=== PATIENT | female | born 1990 | race Caucasian/White ===

== ENCOUNTER 2016-07-24 08:46 | Day surgery (SDC) | payer OTHER ==
--- NOTE | 2016-07-24 09:21 | C.PDOC ---
Time Seen by Provider: 07/24/16 08:58 Chief Complaint (Nursing): Female Genitourinary Past Medical History Vital Signs: Last Vital Signs Temp 98.2 F 07/24/16 09:00 Pulse 72 07/24/16 09:00 Resp 16 07/24/16 09:00 BP 94/67 L 07/24/16 09:00 Pulse Ox 100 07/24/16 09:00 Surgical History: Appendectomy - Social History Hx Alcohol Use: No Hx Substance Use: No - Immunization History Hx Influenza Vaccination: No ED Course And Treatment O2 Sat by Pulse Oximetry: 100
--- NOTE | 2016-07-24 09:28 | C.PDOC ---
History Of Present Illness 25 y/o female lmp 06/03/16 presents with vaginal bleeding since last night, about 3 pads used, with intermittent cramping, none at present. denies urinary symptoms. Time Seen by Provider: 07/24/16 08:58 Chief Complaint (Nursing): Female Genitourinary History Per: Patient, Family History/Exam Limitations: no limitations Onset/Duration Of Symptoms: Days (1) Last Menstral Period: 06/03/16 : 1 Para: 0 Miscarriage: 0 Past Medical History Reviewed: Historical Data, Nursing Documentation, Vital Signs Vital Signs: Last Vital Signs Temp 98.2 F 07/24/16 09:00 Pulse 72 07/24/16 09:00 Resp 16 07/24/16 09:00 BP 94/67 L 07/24/16 09:00 Pulse Ox 100 07/24/16 10:21 - Medical History PMH: No Chronic Diseases Surgical History: Appendectomy Family History: States: Unknown Family Hx - Social History Hx Tobacco Use: No Hx Alcohol Use: No Hx Substance Use: No - Immunization History Hx Influenza Vaccination: No Review Of Systems Constitutional: Negative for: Fever, Chills Cardiovascular: Negative for: Chest Pain Respiratory: Negative for: Cough, Shortness of Breath Gastrointestinal: Positive for: Abdominal Pain. Negative for: Nausea, Vomiting Genitourinary: Positive for: Vaginal Discharge. Negative for: Dysuria Neurological: Negative for: Weakness, Numbness Physical Exam - Physical Exam Appears: Non-toxic, No Acute Distress Skin: Normal Color, Warm, Dry Head: Atraumatic Neck: Normal ROM Chest: Symmetrical, No Deformity, No Tenderness Cardiovascular: Rhythm Regular, No Murmur Respiratory: Normal Breath Sounds, No Rales, No Rhonchi, No Wheezing Gastrointestinal/Abdominal: Bowel Sounds, Soft, No Tenderness Back: No CVA Tenderness Neurological/Psych: Oriented x3, Normal Speech, Normal Cognition, Normal Motor, Normal Sensation ED Course And Treatment - Laboratory Results Result Diagrams: 07/24/16 09:29 07/24/16 09:28 O2 Sat by Pulse Oximetry: 100 Medical Decision Making Medical Decision Makin25 y/o female with ab pain, preg, vaginal bleeding- - labs, hcg, ua type and screen pelvic sono Disposition Discussed With : Livan Marinelli Doctor Will See Patient In The: Hospital - Disposition Disposition: HOSPITALIZED Disposition Time: 10:21 Condition: STABLE - Clinical Impression Clinical Impression: Missed with demise before 20 completed weeks of gestation
[2016-07-24] MEDS ORDERED: Sodium Chloride 0.9% 1,000 ML IV ONE (09:29)
[2016-07-24 09:42] LABS: EOS # 0.1 K/uL (0.0-0.7); MEAN CELL VOLUME 86.5 fL (81.0-99.0)
[2016-07-24 09:45] LABS: CHLORIDE 98 mmol/L (98-107); SODIUM 137 mmol/L (132-148)
[2016-07-24 09:46] LABS: POTASSIUM 3.8 mmol/L (3.6-5.2)
[2016-07-24 09:46] LABS: BASO % 0.5 % (0.0-2.0); EOS % 1.3 % (0.0-4.0); HEMATOCRIT 34.1 % (34.0-47.0); LYMPH # 2.4 K/uL (1.0-4.3); LYMPH % 33.7 % (20.0-40.0); MEAN CORPUSCULAR HGB CONC 33.6 g/dL (33.0-37.0); MEAN PLATELET VOLUME 8.7 fL (7.2-11.7); MONO # 0.5 K/uL (0.0-0.8); MONO % 6.6 % (0.0-10.0); RED CELL DISTRIBUTION WIDTH 12.6 % (11.5-14.5); WHITE BLOOD COUNT 7.1 K/uL (4.8-10.8)
[2016-07-24 09:48] LABS: ALB/GLOB RATIO 1.3 (1.0-2.1); ALKALINE PHOSPHATASE 42 U/L (38-126); AST/SGOT 17 U/L (14-36); BILIRUBIN,TOTAL 0.6 mg/dL (0.2-1.3); BLOOD UREA NITROGEN 6 mg/dL (7-17); CARBON DIOXIDE 24 mmol/L (22-30); GFR AFRICAN-AMERICAN > 60; TOTAL PROTEIN 7.3 g/dL (6.3-8.3)
[2016-07-24 09:49] LABS: ALT/SGPT 12 U/L (9-52); CALCIUM 8.7 mg/dl (8.6-10.4); GLUCOSE,RANDOM 84 mg/dL (65-105)
--- NOTE | 2016-07-24 10:44 | US ---
PROCEDURE: OB Pelvic Ultrasound HISTORY: preg with pain COMPARISON: None available. FINDINGS: UTERUS: Single Live intrauterine gestation. CRL equivalent to 6 weeks 1 day gestatioin Gestational sac diameter equivalent to 6 weeks 0 days gestation. . Gestational sac slightly irregular in shape. age (Ultrasound estimated): 6 weeks 1 day Date of delivery (Ultrasound estimated) : 03/18/2017 Heart rate: 78.8 beats per minute This is abnormally low. Breann-gestational hemorrhage: Large subchorionic hemorrhage, measuring 4.5 x 2.7 x 3.6 cm. Uterus measures 8.6 x 4.8 x 6.2 cm. No mass. CERVIX: Cervix closed and measures 2.6 cm in length. This is slightly shortened. Follow-up advised. RIGHT OVARY: Measures 4.1 x 1.6 x 3.2 cm. No mass. Normal flow. LEFT OVARY: Measures 5.0 x 1.9 x 3.7 cm. No solid mass. Normal flow. Simple cyst, 3.3 x 1.5 x 2.0 cm. FREE FLUID: Small amount of free fluid in cul-de-sac OTHER FINDINGS: None. IMPRESSION: Single live intrauterine gestation of approximately 6 weeks 1 day gestational age. heart rate 78.8 beats per minute. This is below 100 beats per minute is abnormal. Large subchorionic hemorrhage, 4.5 cm in greatest dimension. 3.3 cm left ovarian cyst incidentally noted. Small amount of fluid in cul-de-sac. These findings were discussed by telephone with GUMARO Rachel, at 10:40 a.m. on 07/24/2016.
--- NOTE | 2016-07-24 10:49 | CP.PCM.HP ---
<Sterling Doyle - Last Filed: 07/24/16 10:59> History of Present Illness - History of Present Illness History of Present Illness: Sterling Doyle D.O. PGY-1, Internal Medicine Resident, OBGYN Consultation Note 25 year old female with no PMH who presents to [facility] ER after having vaginal bleeding since last night. Patient reports that she began to have some lower abdominal pain, some back pain, and started to have vaginal bleeding such as when she has a period, then noticed that she was having "big chunks" of blood. Patient states that the pain is 6/10 at its worst, intermittent, localized to the lower abdomen and some back but otherwise non- radiating, not worsened or improved by anything that she has noticed. Patient denies any possible inciting event. OBGYN: Dr. Marinelli PMH: denies PSH: appendectomy SH: denies smoking, drugs, or alcohol use FH: noncontributory Meds: none Allergies: none Present on Admission - Present on Admission Any Indicators Present on Admission: No Review of Systems - Constitutional Constitutional: absent: Anorexia, Chills - EENT Eyes: absent: Blind Spots, Blurred Vision Ears: absent: Decreased Hearing, Dizziness Nose/Mouth/Throat: absent: Epistaxis, Nasal Congestion - Cardiovascular Cardiovascular: absent: Leg Edema, Palpitations, Pedal Edema - Respiratory Respiratory: absent: Cough, Dyspnea, Hemoptysis - Gastrointestinal Gastrointestinal: absent: Abdominal Pain, Diarrhea, Dyspepsia, Nausea, Vomiting - Genitourinary Genitourinary: absent: Dysuria, Flank Pain, Hematuria - Musculoskeletal Musculoskeletal: Back Pain. absent: Numbness - Integumentary Integumentary: absent: Pruritus, Rash, Skin Pain - Neurological Neurological: absent: Syncope, Tremor, Weakness Past Patient History - Past Social History Smoking Status: Never Smoked - PSYCHIATRIC Hx Substance Use: No - SURGICAL HISTORY Hx Appendectomy: Yes - ANESTHESIA Hx Anesthesia: Yes Hx Anesthesia Reactions: No Meds Allergies/Adverse Reactions: Allergies Allergy/AdvReac Type Severity Reaction Status Date / Time No Known Allergies Allergy Verified 07/24/16 09:02 Physical Exam - Constitutional Additional comments: well developed, well nourished, pleasant young female - Head Exam Head Exam: ATRAUMATIC, NORMOCEPHALIC - Eye Exam Eye Exam: EOMI, PERRL. absent: Conjunctival injection, Scleral icterus - ENT Exam ENT Exam: Mucous Membranes Moist, Normal Oropharynx - Neck Exam Neck exam: Positive for: Full Rom. Negative for: Lymphadenopathy, Tenderness - Respiratory Exam Respiratory Exam: Clear to Auscultation Bilateral. absent: Rales, Rhonchi, Wheezes - Cardiovascular Exam Cardiovascular Exam: RRR, +S1, +S2. absent: Gallop, Rubs, Systolic Murmur - GI/Abdominal Exam GI & Abdominal Exam: Normal Bowel Sounds, Soft, Tenderness (mild suprapubic). absent: Distended - Exam Additional comments: deferred - Extremities Exam Extremities exam: Positive for: normal capillary refill, normal inspection, pedal pulses present. Negative for: calf tenderness, pedal edema - Neurological Exam Neurological exam: Alert, CN II-XII Intact, Oriented x3 - Skin Skin Exam: Dry, Intact, Warm Results - Vital Signs Recent Vital Signs: Last Vital Signs Temp 98.2 F 07/24/16 09:00 Pulse 72 07/24/16 09:00 Resp 16 07/24/16 09:00 BP 94/67 L 07/24/16 09:00 Pulse Ox 100 07/24/16 10:28 - Labs Result Diagrams: 07/24/16 09:29 07/24/16 09:28 Labs: Laboratory Results - last 24 hr 07/24/16 07/24/16 09:28 09:29 WBC 7.1 RBC 3.94 Hgb 11.4 Hct 34.1 MCV 86.5 MCH 29.0 MCHC 33.6 RDW 12.6 Plt Count 228 MPV 8.7 Neut % (Auto) 57.9 Lymph % (Auto) 33.7 [place] % (Auto) 6.6 Eos % (Auto) 1.3 Baso % (Auto) 0.5 Neut # 4.1 Lymph # 2.4 [place] # 0.5 Eos # 0.1 Baso # 0.0 Sodium 137 Potassium 3.8 Chloride 98 Carbon Dioxide 24 Anion Gap 18 BUN 6 L Creatinine 0.4 L Est GFR ( Amer) > 60 Est GFR (Non-Af Amer) > 60 Random Glucose 84 Calcium 8.7 Total Bilirubin 0.6 AST 17 ALT 12 Alkaline Phosphatase 42 Total Protein 7.3 Albumin 4.1 Globulin 3.2 Albumin/Globulin Ratio 1.3 Blood Type O POSITIVE Antibody Screen Negative Assessment & Plan - Assessment and Plan (Free Text) Assessment: 25 year old female with no PMH who presents to [facility] ER after having vaginal bleeding since last night. Plan: Patient likely has missed . Labs reviewed by myself. Imaging and official read reviewed by myself, OB ultrasound consistent with small intrauterine gestation 6 weeks 1 day, heart rate is slow, and there is a large subchorionic hemorrhage. Plan for D&C in the OR. Thank you for allowing us to be involved in the care of this patient. Will discuss case with Dr. Marinelli. - Date & Time Date: 07/24/16 Time: 10:38 <Livna Marinelli - Last Filed: 07/24/16 11:22> History of Present Illness - History of Present Illness History of Present Illness: 25 lmp 2/5 here with c/o vaginal bleeding started last night with clots and pain. pt used 4 pads so far and was soaked. obhx primi\\pmh deniesmed pnv all nkda psh denies soch denies sse mod blood pelvic exa ex gn old blood, cervix open , ut anteverted , 6 we, no pal mass sono irrgular gs , 70 fh Present on Admission - Present on Admission Any Indicators Present on Admission: No History of DVT/PE: No History of Uncontrolled Diabetes: No Urinary Catheter: No Decubitus Ulcer Present: No Review of Systems - Reproductive: Female Reproductive:Female: Abnormal Vaginal Bleeding (preg bleeeding) Physical Exam - Exam External exam: NORMAL EXTERNAL EXAM (with vaginal bleeding) Speculum exam: Vaginal Bleeding (mod , cervix dilated) Bimanual exam: NORMAL BIMANUAL EXAM (cervix dilated) Results - Vital Signs Recent Vital Signs: Last Vital Signs Temp 97.7 F 07/24/16 10:40 Pulse 64 07/24/16 10:40 Resp 18 07/24/16 10:40 BP 108/67 07/24/16 10:40 Pulse Ox 100 07/24/16 10:40 - Labs Result Diagrams: 07/24/16 09:29 07/24/16 09:28 Labs: Laboratory Results - last 24 hr 07/24/16 07/24/16 09:28 09:29 WBC 7.1 RBC 3.94 Hgb 11.4 Hct 34.1 MCV 86.5 MCH 29.0 MCHC 33.6 RDW 12.6 Plt Count 228 MPV 8.7 Neut % (Auto) 57.9 Lymph % (Auto) 33.7 [place] % (Auto) 6.6 Eos % (Auto) 1.3 Baso % (Auto) 0.5 Neut # 4.1 Lymph # 2.4 [place] # 0.5 Eos # 0.1 Baso # 0.0 Sodium 137 Potassium 3.8 Chloride 98 Carbon Dioxide 24 Anion Gap 18 BUN 6 L Creatinine 0.4 L Est GFR ( Amer) > 60 Est GFR (Non-Af Amer) > 60 Random Glucose 84 Calcium 8.7 Total Bilirubin 0.6 AST 17 ALT 12 Alkaline Phosphatase 42 Total Protein 7.3 Albumin 4.1 Globulin 3.2 Albumin/Globulin Ratio 1.3 Beta HCG, Quant 17053.00 Blood Type O POSITIVE Antibody Screen Negative Assessment & Plan - Assessment and Plan (Free Text) Assessment: 25 yr at 6weeks incomplete Plan: Admit t printing grey cloth tender npo/ivf labs antibiotoc suction d & c. r/a/b discussed. expectant/surgical mnGEMENT DISCUSSED. PT UNDERSTAND AND AGREES WITH SURGICAL. or AWARE - Date & Time Date: 07/24/16 Time: 11:40
[2016-07-24] MEDS ORDERED: ceFAZolin IV 1 gm in Dextrose 50 ML IVPB ONE (11:20)
[2016-07-24] MEDS ORDERED: Oxytocin 20 units in LR 0 ML IV ONE (11:21)
--- NOTE | 2016-07-24 11:24 | PCM.SURG1 ---
Surgeon's Initial Post Op Note - Surgeon's Notes Surgeon: DR GAMING Dispatch Manager: NONE Anesthesia Administered By: DR DILLON Pre-Operative Diagnosis: 25 YR AT 6WEEKS INCOMPLETE Operative Findings: see the op report Post-Operative Diagnosis: same Operation Performed: suction d &c Specimen/Specimens Removed: poc. chromose analysis Estimated Blood Loss: EBL {In ML}: 20 Blood Products Given: N/A Drains Used: No Drains Post-Op Condition: Good Date of Surgery/Procedure: 07/24/16 Time of Surgery/Procedure: 11:40
[2016-07-24] MEDS ORDERED: Midazolam 2 MG/2 ML VIAL ONE (11:34)
[2016-07-24] MEDS ORDERED: Propofol 10 mg/ml Inj (20 ML) ONE (11:34)
[2016-07-24] MEDS ORDERED: HYDROmorphone 0.5 mg/0.5 ml ISec IVP PRN (11:53)
--- NOTE | 2016-07-25 09:47 | OP ---
PROCEDURE DATE: 07/24/2016 PREOPERATIVE DIAGNOSES: A 25-year-old 1, para 0 at 6+ weeks with incomplete . POSTOPERATIVE DIAGNOSIS: A 25-year-old 1, para 0 at 6+ weeks with incomplete . SURGEON: Livan Marinelli MD READY TO WEAR DEPARTMENT MANAGER SURGEON: None. ANESTHESIA: General anesthesia through IV sedation. ANESTHESIOLOGIST: Dr. Hines. COMPLICATIONS: None. PROCEDURE PERFORMED: Suction dilation and curettage. PROCEDURE: After informed consent was obtained, the patient was brought to the operating room, place d on the table where general anesthesia was given. When anesthesia was found to be adequate, the pat ient was prepped and draped in normal sterile fashion. Examination performed and found cervix to be open 1-2 cm, uterus was 6 weeks to 7 weeks, no vulvar or adnexal masses, after which Carter catheteriz ation was done, 50 mL of urine came out. Then the anterior lip of the cervix was grasped with the te naculum. Gentle dilatation of the cervix was done. Then the 6-Dutch catheter suction curette was i ntroduced and suction was done. Some of the part of the products were sent for chromosome analysis. Then the 7-Dutch catheter was used and then sharp curettage was done gently until ____ then grating sensation was felt. After that, one more time the suction was done. It was found to be clean. The n the anterior tenaculum was taken out from anterior lip of the cervix. The patient tolerated the pr ocedure well. Laps, sponge and instruments correct x 2. Livan Marinelli MD cc: [id number] TT: 07/25/2016 09:47:11 nj
[2016-07-25 16:01] VITALS: BP 110/70; PULSE 80; RESP 18; TEMP 97.6; O2SAT 100
== END 2016-07-24 13:30 | disposition hospice, home (50) ==
LOC: C.SDS 08:46 → C.ER 08:46 → C.SDS 10:27
PROVIDERS: ATTEND Obstetrics & Gynecology
DX: O03.4 Incomplete spontaneous abortion without complication (principal)
CPT/HCPCS: 59812; 76805; 76817; 80053; 84702; 85025; 86850; 86900; 88233; 88262; 88305; 99285; J0690; J2250; J2704; J3010; J7040

== ENCOUNTER 2017-07-21 10:41 | Emergency (ER) | payer OTHER ==
[2017-07-21 10:48] VITALS: TEMP 98.3; O2SAT 100
[2017-07-21] MEDS ORDERED: Sodium Chloride 0.9% 1,000 ML IV ONE (11:04)
--- NOTE | 2017-07-21 11:20 | C.PDOC ---
History Of Present Illness 26 year old female presents to the ED with a complaint of vaginal bleeding since yesterday. Patient reports she has had light bleeding, using approximately two pads daily. Patient is 5 weeks , . She denies any dysuria, pelvic pain, vomiting/diarrhea, fever, vaginal discharge. Patient' s transit proof machine operator is Dr. Marinelli Time Seen by Provider: 07/21/17 11:01 Chief Complaint (Nursing): Female Genitourinary History Per: Patient History/Exam Limitations: no limitations Onset/Duration Of Symptoms: Days (x 1) Current Symptoms Are (Timing): Still Present Severity: Mild Associated Symptoms: denies: Fever, Chills, Nausea, Vomiting, Urinary Symptoms Exacerbating Factors: None Alleviating Factors: None Recent travel outside of the [place]: No Abnormal Vaginal Bleeding: Yes : 2 Para: 1 Past Medical History Reviewed: Historical Data, Nursing Documentation, Vital Signs Vital Signs: Last Vital Signs Temp 98.3 F 07/21/17 10:46 Pulse 88 07/21/17 15:18 Resp 18 07/21/17 15:18 BP 109/72 07/21/17 15:18 Pulse Ox 100 07/21/17 15:18 - Medical History PMH: No Chronic Diseases Surgical History: Appendectomy Family History: States: No Known Family Hx - Social History Hx Tobacco Use: No Hx Alcohol Use: No Hx Substance Use: No - Immunization History Hx Influenza Vaccination: No Review Of Systems Except As Marked, All Systems Reviewed And Found Negative. Constitutional: Negative for: Fever Gastrointestinal: Negative for: Nausea, Vomiting, Abdominal Pain, Diarrhea Genitourinary: Positive for: Vaginal Bleeding. Negative for: Dysuria, Vaginal Discharge Physical Exam - Physical Exam Appears: Well, Non-toxic, No Acute Distress Skin: Normal Color, Warm, Dry Eye(s): bilateral: Normal Inspection Oral Mucosa: Moist Cardiovascular: Rhythm Regular Respiratory: Normal Breath Sounds, No Rales, No Rhonchi, No Wheezing Gastrointestinal/Abdominal: Normal Exam, Bowel Sounds, Soft, No Tenderness, No Distention Back: No CVA Tenderness Neurological/Psych: Oriented x3 ED Course And Treatment - Laboratory Results Result Diagrams: 07/21/17 11:20 07/21/17 11:20 O2 Sat by Pulse Oximetry: 100 (ra) Pulse Ox Interpretation: Normal - CT Scan/US TRANSVAGINAL US Other Rad Studies (CT/US): Read By Radiologist, Radiology Report Reviewed CT/US Interpretation: Accession No. : [id number]. Patient Name / ID : SHARIFA YUNG / [id number]. Exam Date : 07/21/2017 13:39:31 ( Approved ). Study Comment : Sex / Age : F / 26Y. Creator : Deisy Jack MD. Dictator : Deisy Jack MD. Web Application Dev Specialist : Orthotic Assistant : Deisy Jack MD. Approver2 : Report Date : 07/21/2017 14:38:49. My Comment : . HISTORY: PELVIC PAIN BLEEDING. COMPARISON: None available. TECHNIQUE: Transvaginal and transabdominal pelvic ultrasound was performed. FINDINGS: UTERUS: Measures 7.6 x 4.8 x 5.5 cm. Retroverted, normal in size and appearance. No fibroid or other mass lesion seen. ENDOMETRIUM: Measures 10 mm in diameter. Normal in appearance. No evidence of intrauterine gestation. There is a small calcification within the endometrial canal. CERVIX: No cervical abnormality identified. RIGHT OVARY: Measures 3.0 x 1.8 x 2.4 cm. Normal flow. There is a 2.0 x 1.8 x 2.3 cm heterogeneous predominantly hyperechoic mass like area in the right adnexa with mild peripheral vascularity. LEFT OVARY : Measures 3.1 x 1.6 x 2.1 cm. No solid mass. Normal flow. FREE FLUID: There is small amount of free fluid in the pelvis. OTHER FINDINGS: None. IMPRESSION : No evidence of intrauterine gestation. 2.0 x 1.8 x 2.3 cm heterogeneous structure with mild peripheral increased vascularity in the right adnexa is nonspecific however given history of positive beta HCG levels, ectopic cannot be entirely excluded. Clinical and imaging follow-up, and correlation with serial beta HCG levels is recommended. Progress Note: Blood work, UA, transvaginal US ordered and reviewed. Patient given IV NS bolus. Reevaluation Time: 14:55 Reassessment Condition: Improved (Patient currently resting comfortably, in no pain/distress, and without active bleeding. Explained blood work and ultrasound results to patient, and she understands she should follow up with ob/ back roller as scheduled July 29. Patient instructed to return to ED if she has any concerning symptoms.) - Physician Consult Information Physician Contacted: Livan Marinelli Outcome Of Conversation: Discussed patient/ultrasound results with her transit proof machine operator, patient can be discharged home at this time, recommends follow up with her in the office as scheduled July 29. Disposition Counseled Patient/Family Regarding: Studies Performed, Diagnosis, Need For Followup - Disposition Referrals: Livan Marinelli MD [Staff Provider] - Disposition: HOME/ ROUTINE Disposition Time: 14:55 Condition: STABLE Additional Instructions: FOLLOW UP WITH DR MARINELLI SCHEDULED IN THE OFFICE RETURN TO ER IF SYMPTOMS WORSEN Instructions: Bleeding With (DC) Forms: Compendium (Nepali) Print Language: LITHUANIAN - Clinical Impression Clinical Impression: Vaginal bleeding during - Scribe Statement The provider has reviewed the documentation as recorded by the Scribe Giles Tyler All medical record entries made by the Scribe were at my direction and personally dictated by me. I have reviewed the chart and agree that the record accurately reflects my personal performance of the history, physical exam, medical decision making, and the department course for this patient. I have also personally directed, reviewed, and agree with the discharge instructions and disposition.
[2017-07-21 11:30] LABS: BASO % 0.6 % (0.0-2.0); EOS # 0.1 K/uL (0.0-0.7); EOS % 1.2 % (0.0-4.0); HEMOGLOBIN 12.6 g/dL (11.0-16.0); LYMPH # 2.1 K/uL (1.0-4.3); LYMPH % 26.7 % (20.0-40.0); MEAN CELL VOLUME 88.1 fL (81.0-99.0); MEAN CORPUSCULAR HGB CONC 35.1 g/dL (33.0-37.0); MONO # 0.4 K/uL (0.0-0.8); MONO % 5.6 % (0.0-10.0); NEUT # 5.2 K/uL (1.8-7.0); NEUT % 65.9 % (50.0-75.0); RBC 4.06 Mil/uL (3.80-5.20); RED CELL DISTRIBUTION WIDTH 12.4 % (11.5-14.5); WHITE BLOOD COUNT 7.9 K/uL (4.8-10.8)
[2017-07-21 11:45] LABS: ALB/GLOB RATIO 1.1 (1.0-2.1); ALBUMIN 4.1 g/dL (3.5-5.0); ALT/SGPT 11 U/L (9-52); AST/SGOT 21 U/L (14-36); BLOOD UREA NITROGEN 8 mg/dL (7-17); CALCIUM 9.2 mg/dl (8.6-10.4); GFR AFRICAN-AMERICAN > 60; GFR NON-AFRICAN AMERICAN > 60
--- NOTE | 2017-07-21 13:06 | CP.PCM.CON ---
History of Present Illness - History of Present Illness History of Present Illness: 26 yr lmp 06/16/17 came with co vaginal bleeding started yesterday, used 2 pads last night and today bleeding again. c/o pain. obhx 1 x sab pmh den med pnv all nkda psh d&c soch de b cg 63 sono Past Patient History - Past Social History Smoking Status: Never Smoked - PSYCHIATRIC Hx Substance Use: No - SURGICAL HISTORY Hx Appendectomy: Yes - ANESTHESIA Hx Anesthesia: Yes Hx Anesthesia Reactions: No Meds Allergies/Adverse Reactions: Allergies Allergy/AdvReac Type Severity Reaction Status Date / Time No Known Allergies Allergy Verified 07/24/16 09:02 Results - Vital Signs Recent Vital Signs: Last Vital Signs Temp 98.3 F 07/21/17 10:46 Pulse 84 07/21/17 10:46 Resp 16 07/21/17 10:46 BP 116/77 07/21/17 10:46 Pulse Ox 100 07/21/17 11:36 - Labs Result Diagrams: 07/21/17 11:20 07/21/17 11:20 Labs: Laboratory Results - last 24 hr 07/21/17 07/21/17 07/21/17 11:20 11:20 11:20 WBC 7.9 RBC 4.06 Hgb 12.6 Hct 35.8 MCV 88.1 MCH 31.0 MCHC 35.1 RDW 12.4 Plt Count 282 MPV 8.0 Neut % (Auto) 65.9 Lymph % (Auto) 26.7 [place] % (Auto) 5.6 Eos % (Auto) 1.2 Baso % (Auto) 0.6 Neut # (Auto) 5.2 Lymph # (Auto) 2.1 [place] # (Auto) 0.4 Eos # (Auto) 0.1 Baso # (Auto) 0.0 Sodium 143 Potassium 4.0 Chloride 104 Carbon Dioxide 26 Anion Gap 17 BUN 8 Creatinine 0.5 L Est GFR ( Amer) > 60 Est GFR (Non-Af Amer) > 60 Random Glucose 91 Calcium 9.2 Total Bilirubin 0.4 AST 21 ALT 11 Alkaline Phosphatase 49 Total Protein 7.7 Albumin 4.1 Globulin 3.6 Albumin/Globulin Ratio 1.1 Beta HCG, Quant 63.44 Blood Type O POSITIVE Antibody Screen Negative
[2017-07-21 13:30] LABS: URINE BILIRUBIN NEGATIVE (NEGATIVE); URINE BLOOD 2+ (NEGATIVE); URINE CLARITY Clear (Clear); URINE COLOR Colorless (YELLOW); URINE GLUCOSE (UA) NORMAL (Normal); URINE LEUKOCYTE ESTERASE NEG Leu/uL (Negative); URINE PROTEIN NEGATIVE (NEGATIVE); URINE UROBILINOGEN NORMAL mg/dL (0.2-1.0)
--- NOTE | 2017-07-21 14:40 | US ---
HISTORY: PELVIC PAIN BLEEDING COMPARISON: None available. TECHNIQUE: Transvaginal and transabdominal pelvic ultrasound was performed. FINDINGS: UTERUS: Measures 7.6 x 4.8 x 5.5 cm. Retroverted, normal in size and appearance. No fibroid or other mass lesion seen. ENDOMETRIUM: Measures 10 mm in diameter. Normal in appearance. No evidence of intrauterine gestation. There is a small calcification within the endometrial canal. CERVIX: No cervical abnormality identified. RIGHT OVARY: Measures 3.0 x 1.8 x 2.4 cm. Normal flow. There is a 2.0 x 1.8 x 2.3 cm heterogeneous predominantly hyperechoic mass like area in the right adnexa with mild peripheral vascularity. LEFT OVARY: Measures 3.1 x 1.6 x 2.1 cm. No solid mass. Normal flow. FREE FLUID: There is small amount of free fluid in the pelvis. OTHER FINDINGS: None. IMPRESSION: No evidence of intrauterine gestation. 2.0 x 1.8 x 2.3 cm heterogeneous structure with mild peripheral increased vascularity in the right adnexa is nonspecific however given history of positive beta HCG levels, ectopic cannot be entirely excluded. Clinical and imaging follow-up, and correlation with serial beta HCG levels is recommended.
[2017-07-21 15:19] VITALS: BP 109/72; PULSE 88; RESP 18
== END 2017-07-21 15:19 | disposition home or self-care (01) ==
LOC: C.ER 10:41
DX: O20.9 Hemorrhage in early pregnancy, unspecified (principal); Z3A.01 Less than 8 weeks gestation of pregnancy
CPT/HCPCS: 76830; 76856; 80053; 81001; 84702; 85025; 86850; 86900; 96360; 99284; J7040